=== PATIENT | female | born 1995 | race African-American/Black ===

== ENCOUNTER 2021-10-24 17:42 | Day surgery (SDC) | payer SELFPAY ==
[2021-10-24 18:11] VITALS: BMI 30.9
[2021-10-24] MEDS ORDERED: hydrALAZINE 20 MG/ML VIAL SLOW IVP PRN (18:49)
[2021-10-24] MEDS ORDERED: Acetaminophen 325 MG TAB PO PRN (18:50)
[2021-10-24] MEDS ORDERED: Lactated Ringer's 1,000 ML IV SCH (19:00)
[2021-10-24] MEDS ORDERED: Ondansetron PF 4 MG/2 ML Vial IVP PRN (19:24)
[2021-10-24] MEDS ORDERED: Promethazine HCl 25 MG/ML VIAL IM PRN (19:24)
[2021-10-24 19:48] LABS: Hemoglobin 9.8 g/dL (12.0-15.5); Mean Corpuscular HGB CONC 33.9 g/dL (32.0-36.0); Mean Corpuscular Hemoglobin 30.4 pg (27.0-33.0); Mean Corpuscular Volume 89.8 fl (81.6-98.3); Mean Platelet Volume 12.6 fl (7.4-10.4); Platelet Count 226 10x3/uL (150-450); RBC Distribution Width 12.5 % (11.5-14.5); Red Blood Cell (RBC) Count 3.22 10x6/uL (3.90-5.03); White Blood Cell (WBC) Count 9.3 10x3/uL (3.5-10.5)
[2021-10-24 20:12] LABS: HIV (1/2) Antibody/Antigen Non-Reactive (NonReactive); HIV 1/2 INDEX 0.09 S/CO (<1.00); Hep B Surf Ag Non-Reactive S/CO (NonReactive); Syphilis Antibody Nonreactive (Nonreactive); Syphilis Antibody Index 0.05 S/CO (<1.00 Non-Reactive)
[2021-10-24 20:13] LABS: HBSAg Index 0.17 S/CO (0-0.99)
[2021-10-24 20:32] LABS: SARS-CoV-2 NAA Rapid Test DETECTED (NotDetected)
[2021-10-24 20:44] LABS: Bilirubin Neg (Negative); Blood, Urine Negative (Negative); Clarity Clear (Clear); Glucose, Urine (Dipstick) Normal (Negative); Ketone, Urine Negative (Negative); Leukocyte 100 (Negative); Nitrite Negative (Negative); Protein, Urine (Dipstick) Negative (Neg-Trace); Urobilinogen Normal mg/dL (Less than 2)
[2021-10-24 20:46] LABS: Urine Culture Reflex No No
[2021-10-24 20:52] LABS: Amphetamine Not Detected (NotDetected); Barbiturates Screen Not Detected (NotDetected); Benzodiazepine Screen Not Detected (NotDetected); Cocaine Metabolite Screen Not Detected (NotDetected); Methadone Not Detected (NotDetected); Methamphetamine Not Detected (NotDetected); Opiate Screen Not Detected (NotDetected); Oxycodone Screen Not Detected (NotDetected); Phencyclidine (PCP) Not Detected (NotDetected); THC/Cannabinoid Screen Detected (NotDetected); Tricyclic Screen Not Detected (NotDetected)
[2021-10-24 20:53] LABS: Bacteria/HPF Rare-Few HPF (None Seen); RBC/HPF 0-3 HPF (0-3)
== END 2021-10-24 21:28 | disposition home or self-care (01) ==
LOC: CSHLD/OP 17:42
PROVIDERS: ATTEND Family Medicine
DX: O98.513 Other viral diseases complicating pregnancy, third trimester (principal); U07.1 COVID-19; O99.891 Other specified diseases and conditions complicating pregnancy; M54.9 Dorsalgia, unspecified; O99.013 Anemia complicating pregnancy, third trimester; O09.33 Supervision of pregnancy with insufficient antenatal care, third trimester; Z3A.32 32 weeks gestation of pregnancy; Z91.018 Allergy to other foods
CPT/HCPCS: 0240U; 76770; 80306; 81001; 85027; 86762; 86780; 86850; 86900; 86901; 87340; 87389

== ENCOUNTER 2021-11-11 04:45 | Day surgery (SDC) | payer SELFPAY ==
[2021-11-11] MEDS ORDERED: hydrALAZINE 20 MG/ML VIAL SLOW IVP PRN (05:07)
[2021-11-11] MEDS ORDERED: Acetaminophen 500 MG TAB PO SCH (05:30)
[2021-11-11] MEDS ORDERED: Calcium Carbonate 500 MG ChewTAB PO PRN (06:17)
[2021-11-11 06:24] LABS: Amphetamine Not Detected (NotDetected); Barbiturates Screen Not Detected (NotDetected); Benzodiazepine Screen Not Detected (NotDetected); Cocaine Metabolite Screen Not Detected (NotDetected); Methadone Not Detected (NotDetected); Methamphetamine Not Detected (NotDetected); Opiate Screen Not Detected (NotDetected); Oxycodone Screen Not Detected (NotDetected); Phencyclidine (PCP) Not Detected (NotDetected); THC/Cannabinoid Screen Detected (NotDetected); Tricyclic Screen Not Detected (NotDetected)
[2021-11-13 09:25] LABS: Chlamydia by PCR Not Detected (NotDetected); GC by PCR Not Detected (NotDetected)
== END 2021-11-11 08:01 | disposition home or self-care (01) ==
LOC: CSHLD/OP 04:45
PROVIDERS: ATTEND Obstetrics & Gynecology
DX: O99.891 Other specified diseases and conditions complicating pregnancy (principal); R10.9 Unspecified abdominal pain; Z3A.35 35 weeks gestation of pregnancy; Z91.018 Allergy to other foods
CPT/HCPCS: 80306; 87081; 87480; 87491; 87510; 87591; 87660; 99283

== ENCOUNTER 2021-12-18 13:57 | Inpatient (IN) | payer OTHER, SELFPAY ==
[2021-12-18] MEDS ORDERED: Acetaminophen 500 MG TAB PO PRN (14:02)
[2021-12-18] MEDS ORDERED: Ibuprofen 800 MG TAB PO PRN (14:02)
[2021-12-18] MEDS ORDERED: Promethazine HCl 25 MG/ML VIAL IM PRN ×3 (14:02→20:13)
[2021-12-18] MEDS ORDERED: Methylergonovine 0.2 MG/ML VIAL IM PRN (14:02)
[2021-12-18] MEDS ORDERED: Ondansetron PF 4 MG/2 ML Vial IVP PRN ×3 (14:02→20:13)
[2021-12-18] MEDS ORDERED: hydrALAZINE 20 MG/ML VIAL SLOW IVP PRN ×2 (14:02→20:13)
[2021-12-18] MEDS ORDERED: Lidocaine 1% (PF) 30 ML VIAL SC PRN (14:02)
[2021-12-18] MEDS ORDERED: Carboprost 250 MCG/ML AMP IM PRN (14:02)
[2021-12-18] MEDS ORDERED: Docusate 100 MG CAP PO PRN (14:02)
[2021-12-18] MEDS ORDERED: Misoprostol 200 MCG TAB PR PRN (14:02)
[2021-12-18 14:03] VITALS: BMI 35.7
[2021-12-18] MEDS ORDERED: Penicillin G Potassium 5 MILL.UNITS VIAL ONE (14:15)
[2021-12-18] MEDS ORDERED: Penicillin G Potassium 5 MILL.UNITS in Sodium Chloride 0.9% 100 ML IVPB SCH (14:15)
[2021-12-18] MEDS ORDERED: NS w/ Oxytocin 30 units 500 ML IV SCH ×2 (14:15→20:15)
[2021-12-18] MEDS: Lactated Ringer's 1,000 ML IV SCH (14:32)
[2021-12-18 14:41] LABS: Hemoglobin 9.9 g/dL (12.0-15.5); Mean Corpuscular HGB CONC 32.6 g/dL (32.0-36.0); Mean Corpuscular Volume 86.1 fl (81.6-98.3); Mean Platelet Volume 12.2 fl (7.4-10.4); Platelet Count 243 10x3/uL (150-450); RBC Distribution Width 13.5 % (11.5-14.5); Red Blood Cell (RBC) Count 3.53 10x6/uL (3.90-5.03); White Blood Cell (WBC) Count 10.4 10x3/uL (3.5-10.5)
[2021-12-18 15:13] LABS: Hep B Surf Ag Non-Reactive S/CO (NonReactive); Syphilis Antibody Nonreactive (Nonreactive); Syphilis Antibody Index 0.06 S/CO (<1.00 Non-Reactive)
[2021-12-18 15:14] LABS: HBSAg Index 0.16 S/CO (0-0.99)
[2021-12-18] MEDS ORDERED: Fentanyl 2 mcg/Bup 0.1% Cadd 100 ML ONE (15:18)
[2021-12-18 15:23] LABS: Amphetamine Not Detected (NotDetected); Barbiturates Screen Not Detected (NotDetected); Benzodiazepine Screen Not Detected (NotDetected); Cocaine Metabolite Screen Not Detected (NotDetected); Methadone Not Detected (NotDetected); Methamphetamine Not Detected (NotDetected); Opiate Screen Not Detected (NotDetected); Oxycodone Screen Not Detected (NotDetected); Phencyclidine (PCP) Not Detected (NotDetected); THC/Cannabinoid Screen Detected (NotDetected); Tricyclic Screen Not Detected (NotDetected)
[2021-12-18] MEDS ORDERED: Acetaminophen 325 MG TAB PO PRN (16:06)
[2021-12-18] MEDS ORDERED: Hydrocerin (Eucerin) Cream 120 gm Jar TOP PRN (16:06)
[2021-12-18] MEDS ORDERED: Naloxone HCl 0.4 mg/ml Vial IVP PRN ×2 (16:06)
[2021-12-18] MEDS ORDERED: ePHEDrine Sulfate 50 MG/10 ML VIAL SLOW IVP PRN (16:06)
[2021-12-18] MEDS ORDERED: Fentanyl 100 MCG/2 ML VIAL SLOW IVP PRN (16:06)
[2021-12-18] MEDS ORDERED: Ondansetron HCl/PF 4 MG/2 ML Vial IVP PRN (16:06)
[2021-12-18] MEDS ORDERED: Lactated Ringer's 500 ML IV PRN (16:06)
[2021-12-18] MEDS ORDERED: diphenhydrAMINE 50 MG/ML VIAL IVP PRN (16:06)
[2021-12-18] MEDS ORDERED: Meperidine HCl/PF 25 MG/ML VIAL SLOW IVP PRN (16:06)
[2021-12-18] MEDS ORDERED: Communication Order-Pharmacy FS SCH (16:15)
[2021-12-18] MEDS ORDERED: Ketorolac Tromethamine 30 MG/ML VIAL IVP SCH (16:15)
[2021-12-18] MEDS ORDERED: Fentanyl 2 mcg/Bupivacaine 0.1% Cassette 100 ML EPIDURAL SCH (16:15)
[2021-12-18 16:24] LABS: Creatinine, Urine 93.62 mg/dL (47-110)
[2021-12-18 16:50] LABS: ALT (SGPT) 12 U/L (8-55); AST (SGOT) 25 U/L (5-34); Albumin 3.2 g/dL (3.5-5.0); Alkaline Phosphatase 246 U/L (40-110); Anion Gap 15 mmol/L (10-20); BUN (Urea Nitrogen) 6 mg/dL (7.0-18.7); Bilirubin, Total 0.3 mg/dL (0.2-1.2); Calc. Creatinine Clearance 192 mL/min (70-130); Calcium 8.7 mg/dL (7.8-10.44); Carbon Dioxide 19 mmol/L (22-29); Chloride 107 mmol/L (98-107); Globulin 3.6 g/dL (2.4-3.5); Glucose 82 mg/dL (70-105); Potassium 3.7 mmol/L (3.5-5.1); Protein, Total 6.8 g/dL (6.0-8.3); Sodium 137 mmol/L (136-145)
[2021-12-18] MEDS: Penicillin G 2.5 MILL.units 2.5 MILL.UNITS in Premix Bag 1 BAG IVPB SCH (18:07)
[2021-12-18] MEDS ORDERED: Boostrix 0.5 ML (Tdap) VIAL IM ONE (20:13)
[2021-12-18] MEDS ORDERED: Benzocaine-Menthol 82.5 ML CAN TOP PRN (20:13)
[2021-12-18] MEDS ORDERED: Measles/Mumps/Rubella 10 MCG/0.5 ML VIAL SC ONE (20:13)
[2021-12-18] MEDS ORDERED: Bisacodyl 10 MG SUPP PR PRN (20:13)
[2021-12-18] MEDS ORDERED: Milk Of Magnesia 30 ML UDCUP PO PRN (20:13)
[2021-12-18] MEDS ORDERED: diphenhydrAMINE 25 MG CAP PO PRN (20:13)
[2021-12-18] MEDS ORDERED: Preparation H Ointment 28 GM TUBE PR PRN (20:13)
[2021-12-18] MEDS ORDERED: Varicella virus, LIVE 0.5 ML VIAL SC ONE (20:13)
[2021-12-18] MEDS ORDERED: Misoprostol 200 MCG TAB VAG PRN (20:13)
[2021-12-19] MEDS: Docusate 100 MG CAP PO SCH ×3 (00:52→21:07)
[2021-12-19] MEDS: Ibuprofen 800 MG TAB PO SCH ×4 (00:53→21:08)
[2021-12-19] MEDS: Guaifenesin DM 100-10/5 ML UDCUP PO PRN ×4 (01:01→19:15)
[2021-12-19] MEDS: Penicillin G 2.5 MILL.units 2.5 MILL.UNITS in Premix Bag 1 BAG IVPB SCH (01:10)
[2021-12-19] MEDS: Lactated Ringer's 1,000 ML IV SCH (01:10)
[2021-12-19] MEDS: HYDROcodone/Acetaminophen 5/325 mg Tablet PO PRN ×2 (03:30→19:14)
[2021-12-19] MEDS: Ferrous Sulfate 325 MG TAB PO SCH ×2 (09:02→19:13)
[2021-12-20] MEDS: HYDROcodone/Acetaminophen 5/325 mg Tablet PO PRN (02:05)
[2021-12-20] MEDS: Guaifenesin DM 100-10/5 ML UDCUP PO PRN (02:24)
[2021-12-20] MEDS: Ibuprofen 800 MG TAB PO SCH (05:04)
[2021-12-20 07:41] VITALS: BP 139/89; TEMP 99.1
[2021-12-20] MEDS ORDERED: Bupivacaine 0.25% HCL 30 ML VIAL ONE (08:00)
[2021-12-20] MEDS: Ferrous Sulfate 325 MG TAB PO SCH (08:40)
[2021-12-20] MEDS: Docusate 100 MG CAP PO SCH (08:40)
== END 2021-12-20 13:20 | disposition home or self-care (01) | DRG 807 ==
LOC: CSHLD 13:57 → CSHPED 22:35
PROVIDERS: ADMIT Obstetrics & Gynecology; ATTEND Obstetrics & Gynecology
PROC: 10E0XZZ Delivery of Products of Conception, External Approach (ICD-10-PCS; principal; 2021-12-18)
PROC: 10907ZC Drainage of Amniotic Fluid, Therapeutic from Products of Conception, Via Natural or Artificial Opening (ICD-10-PCS; 2021-12-18)
DX: O99.824 Streptococcus B carrier state complicating childbirth (principal); Z37.0 Single live birth; Z3A.40 40 weeks gestation of pregnancy; Z20.822 Contact with and (suspected) exposure to COVID-19; O99.324 Drug use complicating childbirth; F12.10 Cannabis abuse, uncomplicated; Z91.018 Allergy to other foods; Z86.16 Personal history of COVID-19
CPT/HCPCS: 36415; 51702; 80306; 82570; 84156; 86780; 86850; 86900; 86901; 87340; 99285; J0360; J2540; J2590; J3490; J7120; S0020

== ENCOUNTER 2025-08-25 18:14 | Day surgery (SDC) | payer MEDICAID, OTHER ==
[~2025-08-25 18:14] MED LIST: Iopamidol 370 76% 100 ML VIAL ONE
[2025-08-25] MEDS ORDERED: Acetaminophen 500 MG TAB ONE (19:06)
[2025-08-25 19:20] LABS: #Basophils 0.03 10x3/uL (0.0-0.2); #Eosinophils 0.40 10x3/uL (0.0-0.5); #Monocytes 0.59 10x3/uL (0.0-1.1); #Neutrophils 4.96 10x3/uL (1.5-8.4); %Basophils 0.4 % (0.0-2.0); %Eosinophils 5.7 % (0.0-6.0); %Lymphocytes 13.6 % (18.0-47.0); %Monocytes 8.4 % (0.0-10.0); %Neutrophils 71.0 % (40.0-75.0); Hematocrit 26.6 % (34.9-44.5); Hemoglobin 8.5 g/dL (12.0-15.5); Mean Corpuscular Hemoglobin 27.7 pg (27.0-33.0); Mean Corpuscular Volume 86.6 fL (81.6-98.3); Platelet Count 252 10x3/uL (150-450); Red Blood Cell (RBC) Count 3.07 10x6/uL (3.90-5.03); White Blood Cell (WBC) Count 6.99 10x3/uL (3.5-10.5)
[2025-08-25 19:30] LABS: ALT (SGPT) 37 U/L (Less than 34); AST (SGOT) 88 U/L (11-34); Albumin 2.9 g/dL (3.1-4.5); Alkaline Phosphatase 138 U/L (40-110); Anion Gap 12 mmol/L (10-20); BUN (Urea Nitrogen) Less than 4 mg/dL (7.0-18.7); Bilirubin, Total 0.2 mg/dL (0.3-1.2); Calc. Creatinine Clearance 0 mL/min (70-130); Calcium 8.0 mg/dL (7.8-10.44); Carbon Dioxide 22 mmol/L (22-29); Chloride 107 mmol/L (98-107); Globulin 3.6 g/dL (2.4-3.5); Glucose 75 mg/dL (70-105); Potassium 3.3 mmol/L (3.5-5.1); Sodium 138 mmol/L (136-145)
[2025-08-25 19:33] LABS: Troponin I Less than 0.010 ng/mL (< 0.028)
[2025-08-25] MEDS ORDERED: Oseltamivir 75 MG CAP ONE (20:22)
[2025-08-25] MEDS ORDERED: Famotidine/PF 20 mg/2ml Vial ONE (21:39)
[2025-08-26] MEDS ORDERED: Acetaminophen 325 MG TAB PO PRN (00:21)
[2025-08-26] MEDS: Acetaminophen 500 MG TAB PO SCH (01:16)
[2025-08-26 01:17] VITALS: TEMP 100.9
[2025-08-26 01:37] VITALS: BMI 39.9
[2025-08-26] MEDS ORDERED: Oseltamivir 75 MG CAP PO SCH (09:00)
== END 2025-08-26 06:07 | disposition home or self-care (01) ==
LOC: CSHERS 18:14 → CSHLD/OP 23:54
PROVIDERS: ATTEND Obstetrics & Gynecology
DX: O36.8330 Maternal care for abnormalities of the fetal heart rate or rhythm, third trimester, not applicable or unspecified (principal); O98.513 Other viral diseases complicating pregnancy, third trimester; J11.1 Influenza due to unidentified influenza virus with other respiratory manifestations; Z3A.35 35 weeks gestation of pregnancy
CPT/HCPCS: 71045; 71275; 80053; 83880; 84484; 85025; 85379; 87428; 93005; 96365; 96366; 96374; 99285; J1308; Q9967

== ENCOUNTER 2025-09-05 01:40 | Day surgery (SDC) | payer MEDICAID ==
[2025-09-05] MEDS ORDERED: hydrALAZINE 20 MG/ML VIAL SLOW IVP PRN (02:38)
[2025-09-05 02:51] VITALS: BMI 39.9
[2025-09-05 03:17] LABS: #Basophils Less than 0.03 10x3/uL (0.0-0.2); #Eosinophils 0.37 10x3/uL (0.0-0.5); #Monocytes 1.06 10x3/uL (0.0-1.1); #Neutrophils 6.24 10x3/uL (1.5-8.4); %Basophils 0.2 % (0.0-2.0); %Eosinophils 3.5 % (0.0-6.0); %Lymphocytes 27.5 % (18.0-47.0); %Monocytes 9.9 % (0.0-10.0); %Neutrophils 58.2 % (40.0-75.0); Hematocrit 27.5 % (34.9-44.5); Hemoglobin 8.9 g/dL (12.0-15.5); Mean Corpuscular Hemoglobin 27.3 pg (27.0-33.0); Mean Corpuscular Volume 84.4 fL (81.6-98.3); Platelet Count 347 10x3/uL (150-450); Red Blood Cell (RBC) Count 3.26 10x6/uL (3.90-5.03); White Blood Cell (WBC) Count 10.71 10x3/uL (3.5-10.5)
== END 2025-09-05 05:18 | disposition home or self-care (01) ==
LOC: CSHLD/OP 01:40
PROVIDERS: ATTEND Obstetrics & Gynecology
DX: O99.891 Other specified diseases and conditions complicating pregnancy (principal); R10.9 Unspecified abdominal pain; O46.93 Antepartum hemorrhage, unspecified, third trimester; O99.323 Drug use complicating pregnancy, third trimester; F12.90 Cannabis use, unspecified, uncomplicated; Z3A.36 36 weeks gestation of pregnancy; Z91.018 Allergy to other foods
CPT/HCPCS: 36415; 76815; 85025; 86900; 86901; 99285

== ENCOUNTER 2025-09-28 13:46 | Inpatient (IN) | payer MEDICAID ==
[2025-09-28] MEDS ORDERED: hydrALAZINE 20 MG/ML VIAL SLOW IVP PRN ×2 (14:22→22:58)
[2025-09-28] MEDS ORDERED: Ibuprofen 800 MG TAB PO PRN (14:26)
[2025-09-28] MEDS ORDERED: Carboprost 250 MCG/ML AMP IM PRN (14:26)
[2025-09-28] MEDS ORDERED: HYDROcodone/Acetaminophen 5/325 mg Tablet PO PRN ×2 (14:26)
[2025-09-28] MEDS ORDERED: Ondansetron PF 4 MG/2 ML Vial IVP PRN ×3 (14:26→22:58)
[2025-09-28] MEDS ORDERED: Lidocaine 1% (PF) 30 ML VIAL SC PRN ×2 (14:26→15:52)
[2025-09-28] MEDS ORDERED: Acetaminophen 500 MG TAB PO PRN (14:26)
[2025-09-28] MEDS ORDERED: Diphenoxylate HCl/Atropine Tablet PO PRN ×2 (14:26)
[2025-09-28] MEDS ORDERED: Tranexamic Acid 1,000 MG/10 ML VIAL IVP PRN (14:26)
[2025-09-28] MEDS ORDERED: Oxytocin 30 units/NS 500 ML 500 ML IV SCH ×3 (14:30→23:00)
[2025-09-28 15:18] LABS: Hematocrit 29.0 % (34.9-44.5); Hemoglobin 9.6 g/dL (12.0-15.5); Mean Corpuscular Hemoglobin 27.4 pg (27.0-33.0); Mean Corpuscular Volume 82.6 fL (81.6-98.3); Platelet Count 281 10x3/uL (150-450); Red Blood Cell (RBC) Count 3.51 10x6/uL (3.90-5.03); White Blood Cell (WBC) Count 11.57 10x3/uL (3.5-10.5)
[2025-09-28 15:43] LABS: ALT (SGPT) 16 U/L (Less than 34); AST (SGOT) 30 U/L (11-34); Albumin 2.8 g/dL (3.1-4.5); Alkaline Phosphatase 195 U/L (40-110); Anion Gap 12 mmol/L (10-20); BUN (Urea Nitrogen) 6 mg/dL (7.0-18.7); Bilirubin, Total 0.2 mg/dL (0.3-1.2); Calc. Creatinine Clearance 0 mL/min (70-130); Calcium 8.9 mg/dL (7.8-10.44); Carbon Dioxide 22 mmol/L (22-29); Chloride 107 mmol/L (98-107); Globulin 3.7 g/dL (2.4-3.5); Glucose 86 mg/dL (70-105); Potassium 4.0 mmol/L (3.5-5.1); Sodium 137 mmol/L (136-145)
[2025-09-28 15:53] VITALS: BMI 39.9
[2025-09-28 15:55] LABS: HIV (1/2) Antibody/Antigen Non-Reactive (NonReactive); HIV 1/2 INDEX 0.14 S/CO (<1.00); Hep B Surf Ag - L&D Non-Reactive S/CO (NonReactive)
[2025-09-28 15:56] LABS: Syphilis Antibody Index 0.12 S/CO (<1.00 Non-Reactive)
[2025-09-28] MEDS ORDERED: Penicillin G Potassium 5 MILL.UNITS in Sodium Chloride 0.9% 100 ML IVPB SCH (16:00)
[2025-09-28] MEDS: Penicillin G Potassium 5 MILL.UNITS VIAL ONE (16:08)
[2025-09-28] MEDS: Calcium Carbonate 500 MG ChewTAB PO PRN (18:16)
[2025-09-28] MEDS ORDERED: diphenhydrAMINE 50 MG/ML VIAL IVP PRN (18:19)
[2025-09-28 18:29] LABS: Protein, Urine Random Quant 27.0 mg/dL (1-14)
[2025-09-28] MEDS ORDERED: Communication Order-Pharmacy FS SCH (18:30)
[2025-09-28] MEDS ORDERED: fentaNYL 2 mcg/Ropivacaine 0.2% Epidural 100 ML CADD EPIDURAL SCH (18:30)
[2025-09-28] MEDS: Penicillin G 2.5 MILL.units 2.5 MILL.UNITS in Premix 1 BAG IVPB SCH (20:01)
[2025-09-28] MEDS: Famotidine 20 MG TAB PO PRN (21:34)
[2025-09-28] MEDS ORDERED: Methylergonovine 0.2 MG TAB PO PRN (22:58)
[2025-09-28] MEDS ORDERED: Preparation H Ointment 28 GM TUBE PR PRN (22:58)
[2025-09-28] MEDS ORDERED: Benzocaine-Menthol 82.5 ML CAN TOP PRN (22:58)
[2025-09-28] MEDS ORDERED: Bisacodyl 10 MG SUPP PR PRN (22:58)
[2025-09-28] MEDS ORDERED: diphenhydrAMINE 25 MG CAP PO PRN (22:58)
[2025-09-28] MEDS ORDERED: Milk Of Magnesia 30 ML UDCUP PO PRN (22:58)
[2025-09-28] MEDS ORDERED: Methylergonovine 0.2 MG/ML VIAL IM PRN (22:58)
[2025-09-28] MEDS ORDERED: Lanolin Ointment 7 GM TUBE TOP PRN (22:58)
[2025-09-29] MEDS: NIFEdipine XL 30 MG ER.TAB PO SCH ×2 (00:06→09:21)
[2025-09-29] MEDS: fentaNYL/Ropivacaine Epidural 100 ML ONE (00:17)
[2025-09-29 00:18] LABS: Chlamydia by PCR, Vaginal Swab DETECTED (NotDetected); GC by PCR, Vaginal Swab Not Detected (NotDetected)
[2025-09-29] MEDS: Clotrimazole 2% 3 Day Vag Cr 22.2 GM TUBE VAG SCH ×2 (01:29→21:47)
[2025-09-29] MEDS: Furosemide 20 MG TAB PO SCH (01:41)
[2025-09-29] MEDS: metroNIDAZOLE 500 MG TAB PO SCH ×2 (01:41→11:12)
[2025-09-29] MEDS: Ibuprofen 800 MG TAB PO SCH (05:44)
[2025-09-29 06:56] LABS: Hematocrit 29.8 % (34.9-44.5); Hemoglobin 9.7 g/dL (12.0-15.5)
[2025-09-29] MEDS: Ferrous Sulfate 325 MG TAB PO SCH (16:42)
[2025-09-29 17:35] LABS: Hep C IgG Ab NONREACTIVE S/CO (NonReactive); Hep C Index 0.19 S/CO (0-0.79)
[2025-09-30] MEDS: Acetaminophen 325 MG TAB PO PRN (11:58)
[2025-09-30 12:05] VITALS: BP 123/67; TEMP 97.7
[2025-09-30] MEDS ORDERED: Fluconazole 100 MG TAB PO SCH (18:00)
== END 2025-09-30 15:10 | disposition home or self-care (01) | DRG 806 ==
LOC: CSHLD/OP 13:46 → CSHLD 14:38 → CSHPP 09-29 00:15
PROVIDERS: ADMIT Obstetrics & Gynecology; ATTEND Obstetrics & Gynecology
PROC: 10E0XZZ Delivery of Products of Conception, External Approach (ICD-10-PCS; principal; 2025-09-28)
PROC: 3E03329 Introduction of Other Anti-infective into Peripheral Vein, Percutaneous Approach (ICD-10-PCS; 2025-09-28)
DX: O99.324 Drug use complicating childbirth (principal); O98.82 Other maternal infectious and parasitic diseases complicating childbirth; Z37.0 Single live birth; F12.90 Cannabis use, unspecified, uncomplicated; Z3A.38 38 weeks gestation of pregnancy; A59.9 Trichomoniasis, unspecified; O14.95 Unspecified pre-eclampsia, complicating the puerperium
CPT/HCPCS: 36415; 51702; 80053; 82570; 84156; 85014; 85018; 85027; 86762; 86780; 86803; 86850; 86900; 86901; 87340; 87389; 87480; 87491; 87510; 87591; 87660; 99285; J2540